=== PATIENT | male | born 1965 | race Caucasian/White ===

== ENCOUNTER 2017-06-08 18:16 | Emergency (ER) | payer MEDICARE, OTHER ==
[~2017-06-08] VITALS: Ht 165.1 cm; Wt 56.8 kg
[~2017-06-08 18:16] MED LIST: ATOR20TA86 PO; BACL10TA PO; DEXL60CA3 PO; DOCU250C91 PO; FLUT1AER IH; LORA10TA7 PO; TOLT2TAB PO; [UNRECOGNIZED DRUG - CODE] MM
[2017-06-08] MEDS ORDERED: LORA1TAB3 PO (18:30)
[2017-06-08 22:05] VITALS: BP 111/70
== END 2017-06-08 23:23 | disposition home or self-care (01) ==
LOC: EMS 18:18
DX: M79.642 Pain in left hand (principal); K21.9 Gastro-esophageal reflux disease without esophagitis; J45.909 Unspecified asthma, uncomplicated; Z79.899 Other long term (current) drug therapy; Z85.841 Personal history of malignant neoplasm of brain; Z86.69 Personal history of other diseases of the nervous system and sense organs
CPT/HCPCS: 99284